=== PATIENT | male | born 1965 | race Caucasian/White ===

== ENCOUNTER 2017-01-29 19:22 | Emergency (ER) | payer MEDICARE, OTHER ==
[~2017-01-29] VITALS: Ht 165.1 cm; Wt 65.8 kg
[~2017-01-29 19:22] MED LIST: ATORVASTATIN CA20 MG PO; AUGMENTIN 875-1 EACH PO; CARBAMAZEPINE200 MG PO; DIVALPROEX SOD500 MG PO; IBUPROFEN800 MG PO; KEFLEX500 MG PO; LEVOTHYROXINE75 MCG PO; NORCO 5-325 TA1 EACH PO; PREDNISONE20 MG PO; TEGRETOL XR200 MG PO; TUSSIONEX PENN480 ML PO; ULTRAM50 MG PO
== END 2017-01-29 22:30 | disposition home or self-care (01) ==
LOC: ED 19:22
DX: M62.830 Muscle spasm of back (principal); E03.9 Hypothyroidism, unspecified; E78.00 Pure hypercholesterolemia, unspecified; G40.909 Epilepsy, unspecified, not intractable, without status epilepticus; F17.200 Nicotine dependence, unspecified, uncomplicated; Z88.0 Allergy status to penicillin; Z88.5 Allergy status to narcotic agent; Z79.899 Other long term (current) drug therapy
CPT/HCPCS: 96372; 99282; J1885

== ENCOUNTER 2017-05-16 15:39 | Emergency (ER) | payer MEDICARE, OTHER ==
[~2017-05-16] VITALS: Ht 165.1 cm; Wt 65.8 kg
[2017-05-16] MEDS ORDERED: CLEOCIN HCL300 MG PO (16:07)
[2017-05-16] MEDS ORDERED: ULTRAM50 MG PO (16:07)
[2017-05-16] MEDS ORDERED: PRILOSEC OTC20 MG PO (16:44)
[2017-05-16] MEDS ORDERED: NORCO 5-325 TA1 EACH PO (16:44)
== END 2017-05-16 17:13 | disposition home or self-care (01) ==
LOC: ED 15:39
DX: K21.0 Gastro-esophageal reflux disease with esophagitis (principal); E03.9 Hypothyroidism, unspecified; E78.00 Pure hypercholesterolemia, unspecified; G40.909 Epilepsy, unspecified, not intractable, without status epilepticus; Z88.0 Allergy status to penicillin; Z88.5 Allergy status to narcotic agent; Z79.899 Other long term (current) drug therapy
CPT/HCPCS: 99283

== ENCOUNTER 2019-03-16 23:50 | Emergency (ER) | payer MEDICARE, OTHER ==
[~2019-03-16] VITALS: Ht 165.1 cm; Wt 65.8 kg
--- OUTSIDE RECORDS SUMMARY | ~2019-03-16 | XMS | Encounter Summary ---
Demographics + + + | Address | [address] | | | [place] [address] | + + + | Home Phone | | + + + | Preferred Language | Unknown | + + + | Marital Status | | + + + | Yarsani Affiliation | Unknown | + + + | Race | Unknown | + + + | Ethnic Group | Unknown | + + + Author + + + | Author | [facility] | | | and [place] | + + + | Organization | [facility] | | | and [place] | + + + | Address | Unknown | + + + | Phone | Unavailable | + + + Support + + + + + | Name | Relationship | Address | Phone | + + + + + | Alesha Ly | ECON | [address] | | | | | [place] | | | | | [address] | | + + + + + | Arabella Zabala | ECON | Unknown | | + + + + + | No Contact | ECON | Unknown | | + + + + + Care Team Providers + +------+ + | Care Lab Rn Name | Role | Phone | + +------+ + | Ephraim Altamirano MD | PCP | | + +------+ + Reason for Visit + + + | Reason | Comments | + + + | Imaging Only | | + + + Encounter Details +--------+ + + + + | Date | Type | Department | Care Team | Description | +--------+ + + + + | 08/29/ | Telephone | [facility] | Matty Hu, | Imaging Only | | 2015 | | NEUR[address]UR[address]ERY [address] | PA-C [address] | | | | | [address] | [address] [facility] | | | | | [place], [place] | [place] [address] | | | | | [address] | [phone] | | | | | [phone] | | | +--------+ + + + + Social History + +-------+ +--------+------+ | Tobacco Use | Types | Packs/Day | Years | Date | | | | | Used | | + +-------+ +--------+------+ | Never Smoker | | | | | + +-------+ +--------+------+ + +------+---+---+ | Smokeless Tobacco: | Chew | | | | Current User | | | | + +------+---+---+ + + | Comments: Rarely uses chew | + + + + +---------+ + | Alcohol Use | Drinks/Week | oz/Week | Comments | + + +---------+ + | No | 0 Standard drinks | 0.0 | | | | or equivalent | | | + + +---------+ + + + + | Sex Assigned at | Date Recorded | | | | + + + | Not on file | | + + + + + + + | Job Start Date | Occupation | Industry | + + + + | Not on file | Not on file | Not on file | + + + + + + + + | Travel History | Travel Start | Travel End | + + + + + + | No recent travel history available. | + + documented as of this encounter Plan of Treatment Not on filedocumented as of this encounter Visit Diagnoses Not on filedocumented in this encounter"
--- OUTSIDE RECORDS SUMMARY | ~2019-03-16 | XMS | Encounter Summary ---
Demographics + + + | Address | [address] | | | [place] [address] | + + + | Home Phone | | + + + | Preferred Language | Unknown | + + + | Marital Status | | + + + | Holiness Affiliation | Unknown | + + + | Race | Unknown | + + + | Ethnic Group | Unknown | + + + Author + + + | Author | [facility] | | | and [place] | + + + | Organization | [facility] | | | and [place] | + + + | Address | Unknown | + + + | Phone | Unavailable | + + + Support + + + + + | Name | Relationship | Address | Phone | + + + + + | Adan Ly | ECON | [address] | | | | | [place] | | | | | [address] | | + + + + + | Arabella Zabala | ECON | Unknown | | + + + + + | No Contact | ECON | Unknown | | + + + + + Care Team Providers + +------+ + | Care Director Physical Therapy Name | Role | Phone | + +------+ + | Ephraim Altamirano MD | PCP | | + +------+ + Encounter Details +--------+ + + + + | Date | Type | Department | Care Team | Description | +--------+ + + + + | 08/28/ | Hospital | [facility] | Oscar Garcia, | Neck pain | | 2016 | Encounter | MED CTR XRAY [address] | DO [address] | | | | | [place] | [address], [place] | | | | | [place] [address] | [id number] | | | | | [phone] | | | +--------+ + + + [...] + + documented as of this encounter Medications at Time of Discharge + + + +---------+--------+ + | Medication | Sig | Dispensed | Refills | Start | End Date | | | | | | Date | | + + + +---------+--------+ + | atorvaSTATin | Take 20 mg by mouth | | 0 | | | | (LIPITOR) 20 mg | nightly. | | | | | | tablet | | | | | | + + + +---------+--------+ + | carBAMazepine | Take 200 mg by mouth | | 0 | | | | (TEGRETOL) 200 mg | 3 times daily. | | | | | | tablet | | | | | | + + + +---------+--------+ + | divalproex | Take 500 mg by mouth | | 0 | | | | (DEPAKOTE) 500 mg EC | 2 times daily. | | | | | | tablet | | | | | | + + + +---------+--------+ + | gabapentin | Take 300 mg by mouth | | 0 | | | | (NEURONTIN) 300 mg | Daily. | | | | | | capsule | | | | | | + + + +---------+--------+ + | levothyroxine | Take 75 mcg by mouth | | 0 | | | | (SYNTHROID, | every morning | | | | | | LEVOTHROID) 75 MCG | (before breakfast). | | | | | | tablet | | | | | | + + + +---------+--------+ + documented as of this encounter Plan of Treatment Not on filedocumented as of this encounter Procedures + +--------+ + + + | Procedure Name | Priori | Date/Time | Associated Diagnosis | Comments | | | ty | | | | + +--------+ + + + | XR CERVICAL SPINE 4 | Routin | 08/29/2015 | Neck pain | Results for this | | OR 5 VWS | e | 1:02 PM | | procedure are in the | | | | PDT | | results section. | + +--------+ + + + documented in this encounter Results XR Cervical Spine 4 or 5 Vws (08/29/2015 1:02 PM PDT) + + | Specimen | + + | | + + + + + | Narrative | Performed At | + + + | CERVICAL SPINE: 08/29/2015 1:02 PM CLINICAL HISTORY: Neck pain | [facility] | | COMPARISON: CT cervical spine 04/18/2015 FINDINGS: Upright AP, | [facility] | | lateral and lateral flexion-extension views of the cervical spine. | [facility] | | Spine is imaged to the mid body of T1. Vertebral body heights are | - IMAGING | | normal. Mild disc space narrowing at C5-C6 with anterior osteophyte | | | formation. Also mild disc space narrowing at C3-C4. Facet joints are | | | normally aligned. There is straightening of the normal cervical | | | lordosis on the neutral view. No focal loss of alignment in flexion | | | or extension. No prevertebral swelling or paraspinous soft tissue | | | abnormality. IMPRESSION - Early degenerative changes at C5-C6 and | | | to a lesser extent at C3-C4. No radiographic demonstration of | | | instability. Dictated and Signed by: Fidencio Hein MD | | | Electronically signed: 08/29/2015 3:01 PM | | + + + + + | Procedure Note | + + | Loy, Rad Results In - 08/29/2015 3:05 PM PDT CERVICAL SPINE: 08/29/2015 1:02 PM | | | | CLINICAL HISTORY: Neck pain | | | | COMPARISON: CT cervical spine 04/18/2015 | | | | FINDINGS: Upright AP, lateral and lateral flexion-extension views of the | | cervical spine. | | | | Spine is imaged to the mid body of T1. Vertebral body heights are normal. Mild | | disc space narrowing at C5-C6 with anterior osteophyte formation. Also mild disc | | space narrowing at C3-C4. Facet joints are normally aligned. | | | | There is straightening of the normal cervical lordosis on the neutral view. No | | focal loss of alignment in flexion or extension. | | | | No prevertebral swelling or paraspinous soft tissue abnormality. | | | | IMPRESSION - Early degenerative changes at C5-C6 and to a lesser extent at C3-C4. | | No radiographic demonstration of instability. | | | | Dictated and Signed by: Fidencio Hein MD | | Electronically signed: 08/29/2015 3:01 PM | + + + + + + + | Performing | Address | City/State/Zipcode | Phone Number | | Organization | | | | + + + + + | [facility] | [address] | [place] | [phone] | | [facility] | | [address] | | | - IMAGING | | | | + + + + + documented in this encounter Visit Diagnoses + + | Diagnosis | + + | Neck pain Cervicalgia | + + documented in this encounter"
--- OUTSIDE RECORDS SUMMARY | ~2019-03-16 | XMS | Encounter Summary ---
Demographics + + + | Address | [address] | | | [place] [address] | + + + | Home Phone | | + + + | Preferred Language | Unknown | + + + | Marital Status | | + + + | Judaism Affiliation | Unknown | + + + | Race | Unknown | + + + | Ethnic Group | Unknown | + + + Author + + + | Author | [facility] | | | and [place] | + + + | Organization | [facility] | | | and [...] [place] | | | | | [address] | | + + + + + | Arabella Zabala | ECON | Unknown | | + + + + + | No Contact | ECON | Unknown | | + + + + + Care Team Providers + +------+ + | Care Business Integration Analyst Name | Role | Phone | + +------+ + | Ephraim Altamirano MD | PCP | | + +------+ + Encounter Details +--------+ + + + + | Date | Type | Department | Care Team | Description | +--------+ + + + + | 09/24/ | Transcribed | [facility] | Ephraim Altamirano | Seizures (HCC) | | 2017 | Orders | MED [facility] SLEEP | MD [address] | (Primary Dx) | | | | [place] [address] | [place] | | | | | [place] | [place] [address] | | | | | [address] | [phone] | | | | | [phone] | | | +--------+ + + + [...] Not on filedocumented as of this encounter Results EEG (10/05/2016 9:02 PM PDT) + + + | Narrative | Performed At | + + + | Emanuel Yadav MD 10/05/2016 21:02 EEG | | | REPORT General Description: This was a 19 channel awake and | | | drowsy EEG recording with [employer] 10/20 electrode placements. | | | The background activity consisted of diffuse low to moderate | | | amplitude theta activity throughout the recording. Activation | | | Procedures: Hyperventilation produced no significant changes to the | | | background activity. Photic stimulation produced no significant | | | changes to the background activity. Sleep Patterns: No sleep was | | | noted. INTERPRETATION: This EEG is abnormal. Diffuse slowing is | | | suggestive of a diffuse encephalopathy of metabolic, degenerative | | | or vascular origin. No epileptiform discharges were seen. Thank | | | you for the courtesy of this referral. | | + + + documented in this encounter Visit Diagnoses + + | Diagnosis | + + | Seizures (HCC) - Primary Other convulsions | + + documented in this encounter"
--- OUTSIDE RECORDS SUMMARY | ~2019-03-16 | XMS | Encounter Summary ---
Demographics + + + | Address | [address] | | | [place] [address] | + + + | Home Phone | | + + + | Preferred Language | Unknown | + + + | Marital Status | | + + + | Anabaptism Affiliation | Unknown | + + + | Race | Unknown | + + + | Ethnic Group | Unknown | + + + Author + + + | Author | [facility] | | | and [place] | + + + | Organization | [facility] | | | [...] [place] | | | | | [address] | | + + + + + | Arabella Zabala | ECON | Unknown | | + + + + + | No Contact | ECON | Unknown | | + + + + + Care Team Providers + +------+ + | Care Apartment Maintenance Worker Name | Role | Phone | + [...] | (Primary Dx) | | | | [facility] [address] | [place] | | | | | [place] | [place] [address] | | | | | [address] | [phone] | | | | | [phone] | | | +--------+ + + + [...]
--- OUTSIDE RECORDS SUMMARY | ~2019-03-16 | XMS | Encounter Summary ---
Demographics + + + | Address | [address] | | | [place] [address] | + + + | Home Phone | | + + + | Preferred Language | Unknown | + + + | Marital Status | | + + + | Jehovah'S Witness Affiliation | Unknown | + + + | Race | Unknown | + + + | Ethnic Group | Unknown | + + + Author + + + | Author | [facility] | | | and [place] | + + + | Organization | [facility] | | | [...] [address] | | | | | [place] | | | | | [id number] | | + + + + + | Arabella Zabala | ECON | Unknown | | + + + + + | No Contact | ECON | Unknown | | + + + + + Care Team Providers + +------+ + | Care Stuffer Name | Role | Phone | + +------+ + | Ephraim Altamirano MD | PCP | | + +------+ + Reason for Referral Evaluate & Treat (Routine) +--------+ + + + + + | Status | Reason | Specialty | Diagnoses / | Referred By | Referred To | | | | | Procedures | Contact | Contact | +--------+ + + + + + | Closed | Specialty | Physical | Diagnoses | [facility], | | | | Services | Therapy | Bilateral | Teodoro Poon MD | | | | Required | | low back | [address] | | | | | | pain without | [address] | | | | | | sciatica | [place], | | | | | | Lumbar | [place] [address] | | | | | | strain, | Phone: | | | | | | initial | [phone] | | | | | | encounter | Fax: | | | | | | | [phone] | | +--------+ + + + + + Reason for Visit + + + | Reason | Comments | + + + | Procedure | | + + + Evaluate & Treat (Routine) +--------+ + + + + + | Status | Reason | Specialty | Diagnoses / | Referred By | Referred To | | | | | Procedures | Contact | Contact | +--------+ + + + + + | Closed | Specialty | Physical | Diagnoses | Huan, | Teodoro [facility]ley | | | Services | Medicine and | Cervicalgia | Teodoro Poon MD | Latasha Poon MD [address] | | | Required | Rehabilitatio | Left upper | [address] | | | | n | extremity | [address] | [place], | | | | | numbness | [place], | [place] [address] | | | | | Weakness of | [place] [address] | Phone: | | | | | left upper | Phone: | [phone] | | | | | extremity | [phone] | Fax: | | | | | Osteoarthrit | Fax: | [phone] | | | | | is of spine | [phone] | | | | | | with | | | | | | | radiculopath | | | | | | | y, cervical | | | | | | | region | | | | | | | Procedures | | | | | | | DOS 07/25/15 | | | +--------+ + + + + + Encounter Details +--------+ + + + + | Date | Type | Department | Care Team | Description | +--------+ + + + + | 07/24/ | Procedure | [facility] | Teodoro [facility] A, | Cervicalgia (Primary | | 2016 | visit | PHYSIATRY [address] | MD [address] | Dx); Left upper | | | | [address] [place], | [place], [place] | extremity numbness; | | | | [place] [address] | [address] | Weakness of left | | | | [phone] | | upper extremity; | | | | | | Bilateral low back | | | | | | pain without | | | | | | sciatica; Lumbar | | | | | | strain, initial | | | | | | encounter | +--------+ + + + + Social History + +-------+ +--------+------+ | Tobacco Use | Types | Packs/Day | Years | Date | | | | | Used | | + +-------+ +--------+------+ | Never Smoker | | | | | + +-------+ +--------+------+ + +------+---+---+ | Smokeless Tobacco: | Chew | | | | Former User | | | | + +------+---+---+ + + +---------+ + | Alcohol Use [...] + + documented as of this encounter Last Filed Vital Signs + + + + + | Vital Sign | Reading | Time Taken | Comments | + + + + + | Blood Pressure | 130/85 | 07/25/2015 10:21 AM | | | | | PDT | | + + + + + | Pulse | 85 | 07/25/2015 10:21 AM | | | | | PDT | | + + + + + | Temperature | - | - | | + + + + + | Respiratory Rate | 16 | 07/25/2015 10:21 AM | | | | | PDT | | + + + + + | Oxygen Saturation | - | - | | + + + + + | Inhaled Oxygen | - | - | | | Concentration | | | | + + + + + | Weight | - | - | | + + + + + | Height | 165.1 cm (5' 5") | 07/25/2015 10:21 AM | | | | | PDT | | + + + + + | Body Mass Index | - | - | | + + + + + documented in this encounter Patient Instructions Patient Instructions Teodoro Pressley MD - 07/25/2015 10:54 AM PDTParticipate in physical t herapy for the neck and the back. Continue Gabapentin prescribed by your doctor. Return to the clinic in 8 weeks to review your symptoms. If neck symptoms and back symptoms persist we will request additional imaging such as MRIs. documented in this encounter Progress Notes Teodoro Pressley MD - 07/25/2015 11:22 AM PDTFormatting of this note might be different fro m the original. [facility] Physical Medicine & Rehabilitation [address] [place] [address], [address] [place] [address] Test Date: 07/25/2015 Patient Name: Mata Tipton : 1965 Physician: Teodoro Press[facility] MD (Jr.) MR #: [id number] Sex: Male Referring Physician: Ephraim Altamirano MD HISTORY: Mr. Tipton reports that he has neck pain, left upper extremity pain, numbness and weakness . He reports that his left upper extremity symptoms have been dramatically improved since s tarting prescribed medication gabapentin. Gabapentin was prescribed by his PCP. He indicat es that he has been having less numbness and tingling in the left upper extremity since usin g gabapentin. He indicates that he has been having neck discomfort for 1 year. He indicates his neck joel n is a 5/10 on a numerical pain scale. He reports that his neck pain is getting worse. Nec k pain is constant in timing. Neck pain is dull. He experiences shooting pain into the lef t axilla, down the left ulnar forearm and into the entire left hand. He indicates that he h as numbness and tingling intermittently in left upper extremity. He indicates that it invol ves all fingers of the left hand. He denies weakness in the left upper extremity. He indic ates that symptoms in left upper extremity start for no specific reason. He reports that sy mptoms started without specific injury. He indicates he has left hand numbness that occurs at night and wakes him from sleep. He indicates that his left upper extremity symptoms star cheryl around 3 months ago. His neck pain has been going on for 1 year. He indicates that sym ptoms occur daily with numbness in left hand, usually when he is at work. He indicates that the episodes of numbness in the left hand last for 5 minutes and then go away. He finds hi mself shaking his hand to get the numbness to go away. He denies dropping objects with the left hand. He reports that there have been some occasions where he wakes up at night and fi nds that his left hand is numb. He denies pain, numbness, tingling or weakness in the right upper extremity. He indicates that his symptoms seem to reduce if he slouches and keeps wv s neck in a flexed position. He indicates that his symptoms seem to be worse if he sits ere ct with his neck in a more straight up position. He continues to have back pain. He reports that he has had back pain for almost 2 months. He indicates that he has had back pain on and off for years. Current back pain is 3 out of 10 on a numerical pain scale. He is requesting a pain pill or something for wv s back. Prior episodes of back pain of back pain lasts for a few weeks and then go away. H e indicates the back pain is bilateral. He indicates that right is equal to left. He denie s any pain from the back, traveling into the legs. He denies numbness, tingling or weakness in either lower extremity. He denies incontinence of bowel or bladder. He denies saddle a nesthesia. He indicates that it feels like the muscles in the back are tight. PHYSICAL EXAM: Exam demonstrates intact cranial nerves. His memory is intact. His speech is normal. His sensation is intact to light touch and pinprick in both upper extremities as well as both l ower extremities. His reflexes are normal over biceps and triceps of both upper extremities , normal over patellar and Achilles of both lower extremities. No clonus to either ankle. Strength is 4/5 hand sole stitcher hand on the left compared to 5/5 on the right. There is 4/5 wrist dors iflexion strength on the left compared to 5/5 on the right. There is 5/5 biceps, triceps, f frieda abduction strength in both upper extremities. There is 5/5 hip flexion, knee flexion, knee extension, ankle dorsiflexion, ankle plantar flexion strength in both lower extremitie s. Gait is normal. Nerve Conduction Studies Anti Sensory Summary Table Site NR Peak (ms) Norm Peak (ms) O-P Amp (V) Norm O-P Amp Site1 Site2 Delta-0 (ms) Dist (cm) Inocencio (m/s) Norm Inocencio (m/s) Left Median Anti Sensory (2nd Digit) 23.3C Wrist 3.1 <3.6 50.7 >10 Wrist 2nd Digit 2.3 14.0 61 >39 Elbow 7.0 22.0 Elbow Wrist 3.9 21.5 55 >48 Left Radial Anti Sensory (Base 1st Digit) 23.7C Wrist 2.3 <2.7 16.4 Wrist Base 1st Digit 1.9 10.0 53 Left Ulnar Anti Sensory (5th Digit) 23.4C Wrist 3.0 <3.7 53.6 >15.0 Wrist 5th Digit 2.5 14.0 56 >38 B Elbow 6.4 28.6 B Elbow Wrist 3.0 18.0 60 >47 A Elbow 7.8 27.5 A Elbow B Elbow 1.4 10.0 71 Motor Summary Table Site NR Onset (ms) Norm Onset (ms) O-P Amp (mV) Norm O-P Amp Site1 Site2 Delta-0 (ms) Dist (cm) Inocencio (m/s) Norm Inocencio (m/s) Left Median Motor (Abd Poll Brev) 23.6C Wrist 3.8 <4.2 5.0 >5 Elbow Wrist 4.2 22.5 54 >50 Elbow 8.0 4.7 Axilla Elbow 1.5 10.0 67 Axilla 9.5 5.5 Left Ulnar Motor (Abd Dig Minimi) 23.6C Wrist 3.0 <4.2 10.3 >3 B Elbow Wrist 3.2 18.0 56 >53 B Elbow 6.2 10.0 A Elbow B Elbow 1.5 10.0 67 >53 A Elbow 7.7 9.8 Comparison Summary Table Site NR Peak (ms) Norm Peak (ms) P-T Amp (V) Site1 Site2 Delta-P (ms) Norm Delta (ms) Left Median/Radial Dig I Comparison (Digit 1 - 10cm) 23.6C Median 2.3 <2.9 89.7 Median Radial 0.1 <0.4 Radial 2.4 <2.8 17.1 Left Median/Ulnar Dig IV Comparison (Digit 4 - 14cm) 23.3C Median Wr 3.2 <3.3 33.5 Median Wr Ulnar Wr 0.3 <0.4 Ulnar Wr 2.9 <3.3 42.1 Left Median/Ulnar Palm Comparison (Wrist - 8cm) 23.7C Median Palm 2.0 <2.5 123.4 Median Palm Ulnar Palm 0.1 <0.3 Ulnar Palm 1.9 <2.5 45.4 F Wave Studies NR F-Lat (ms) Lat Norm (ms) L-R F-Lat (ms) L-R Lat Norm Left Median (Mrkrs) (Abd Poll Brev) 23.6C 27.75 <33 <2.2 Left Ulnar (Mrkrs) (Abd Dig Min) 23.6C 25.50 <36 <2.5 EMG Side Muscle Nerve Root Ins Act Fibs Psw Amp Dur Poly Recrt Int Pat Comment Left Deltoid Axillary C5-6 Incr Nml 1+ Nml Nml Poly Nml Nml Left Biceps Musculocut C5-6 Nml Nml Nml Nml Nml Nml Nml Nml Left Triceps Radial C6-7-8 Nml Nml Nml Nml Nml Nml Nml Nml Left PronatorTeres Median C6-7 Nml Nml Nml Nml Nml Nml Nml Nml Left 1stDorInt Ulnar C8-T1 Nml Nml Nml Nml Nml Nml Nml Nml Left Abd Poll Brev Median C8-T1 Nml Nml Nml Nml Nml Nml Nml Nml NCV FINDINGS: All nerve conduction studies (as indicated in the following tables) were with in normal limits. All F Wave latencies were within normal limits. EMG FINDINGS: Needle evaluation of the Left deltoid muscle showed increased insertional act ivity, slightly increased spontaneous activity, and polyphasic potentials. All remaining mu scles (as indicated in the following table) showed no evidence of electrical instability. IMPRESSION: This is an abnormal study. Nerve conduction study of the left upper extremity was normal. There was no evidence of me cristiana neuropathy (e.g. carpal tunnel syndrome) in the left upper extremity. This study can e xclude the presence of carpal tunnel syndrome at this time. There was no evidence of ulnar neuropathy in the left upper extremity. There was no evidence of radial neuropathy in the l eft upper extremity at this time. Needle EMG of the left upper extremity was abnormal. Needle EMG of the left upper extremit y does not meet the diagnostic criteria for cervical radiculopathy. However, the abnormalit ies seen, paired with Mr. Tipton s clinical presentation is most consistent with left C6 radiculopathy. This study cannot diagnose nor can it rule out the presence of cervical spin al stenosis. DISCUSSION: Mr. Tipton demonstrated fair tolerance to nerve conduction study and EMG. He was able to complete the entire study. As noted above, this study is able to rule out the presence of carpal tunnel syndrome. The study does not meet the absolute diagnostic criteria for cervical radiculopathy, but the ab normalities seen in combination with Mr. Tipton s clinical presentation is most consisten t with left C6 radiculopathy. This study cannot diagnose nor rule out cervical spinal steno sis. Mr. Tipton has been asked to participate in physical therapy for both his neck and his jesus k. He already has cervical CT with evidence of cervical spondylosis. He should continue ga bapentin. He will return to the clinic in 8 weeks to review his response to physical therap y. If he continues to have neck symptoms cervical MRI will be requested. Future treatment options for the neck include interventional injection, additional medication, and surgical c onsult. Mr. Tipton continues to have non-radicular back pain. He will have physical therapy for h is back. If back pain persists in the future we will request lumbar MRI. Approximately 15 minutes was spent face to face today with Mr. Tipton, beyond the completi on of the nerve conduction study and EMG above, over half of which was spent formulating and discussing his medical treatment plan. Thank you for allowing me to be involved in the care of your patient. If you have any quest ions or comments, please do not hesitate to call. Teodoro Pressley MD (Jr.) Physical Medicine and Rehabilitation Cc: Ephraim Altamirano MD documented in this en counter Plan of Treatment + + +--------+ + + | Name | Type | Priori | Associated Diagnoses | Order Schedule | | | | ty | | | + + +--------+ + + | External Ambulatory | Outpatient | Routin | Bilateral low back | Ordered: 07/25/2015 | | referral to Physical | Referral | e | pain without | | | Therapy | | | sciatica Lumbar | | | | | | strain, initial | | | | | | encounter | | + + +--------+ + + documented as of this encounter Visit Diagnoses + + | Diagnosis | + + | Cervicalgia - Primary | + + | Left upper extremity numbness Disturbance of skin sensation | + + | Weakness of left upper extremity Other musculoskeletal symptoms referable to limbs | + + | Bilateral low back pain without sciatica | + + | Lumbar strain, initial encounter | + + documented in this encounter
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
--- OUTSIDE RECORDS SUMMARY | ~2019-03-16 | XMS | Encounter Summary ---
Demographics + + + | Address | [address] | | | [place] [address] | + + + | Home Phone | | + + + | Preferred Language | Unknown | + + + | Marital Status | | + + + | Gnosticism Affiliation | Unknown | + + + | Race | Unknown | + + + | Ethnic Group | Unknown | + + + Author + + + | Author | [facility] | | | and [place] | + + + | Organization | [facility] | | | [...] [place] | | | | | [address] | | + + + + + | Arabella Zabala | ECON | Unknown | | + + + + + | No Contact | ECON | Unknown | | + + + + + Care Team Providers + +------+ + | Care Trigonometry Tutor Name | Role | Phone | + +------+ + | Cullen Altamirano MD | PCP | | + [...] Physical | Diagnoses | Huan, | Teodoro John | | | Services | Medicine and | Cervicalgia | Teodoro Poon MD | Latasha Poon MD [address] | | | Required | Rehabilitatio | Left upper | [address] | | | | n | extremity | [address] | [place], | | | | | numbness | [place], | [place] [address] | | | | | Weakness of | [place] [address] | Phone: | | | | | left upper | Phone: | [phone] | | | | | extremity | [phone] | Fax: | | | | | Osteoarthrit | Fax: | [phone] | | | | | is of spine | [phone] | | | | | | with | | | | | | | radiculopath | | | | | | | y, cervical | | | | | | | region | | | | | | | Procedures | | | | | | | DOS 07/25/15 | | | +--------+ + + + + + Evaluate & Treat (Routine) +--------+ + + + + + | Status | Reason | Specialty | Diagnoses / | Referred By | Referred To | | | | | Procedures | Contact | Contact | +--------+ + + + + + | Closed | Specialty | Physical | Diagnoses | Huan, | | | | Services | Therapy | Cervicalgia | Teodoro Poon MD | | | | Required | | Left upper | [address] | | | | | | extremity | [address] | | | | | | numbness | [place], | | | | | | Weakness of | [place] [address] | | | | | | left upper | Phone: | | | | | | extremity | [phone] | | | | | | Osteoarthrit | Fax: | | | | | | is of spine | [phone] | | | | | | with | | | | | | | radiculopath | | | | | | | y, cervical | | | | | | | region | | | +--------+ + + + + + Reason for Visit + + + | Reason | Comments | + + + | Neck Pain | radiates to LUE | + + + Evaluate & Treat (Routine) +--------+--------+ + + + + | Status | Reason | Specialty | Diagnoses / | Referred By | Referred To | | | | | Procedures | Contact | Contact | +--------+--------+ + + + + | Closed | | Physical | Diagnoses | Evelia, | Teodoro John | | | | Medicine and | | Cullen Bright, | Latasha Poon MD [address] | | | | Rehabilitatio | Radiculopath | [address] | | | | n | y, site | [address] | [place], | | | | | unspecified | [place], | [place] [address] | | | | | | [place] [address] | Phone: | | | | | | Phone: | [phone] | | | | | | [phone] | Fax: | | | | | | Fax: | [phone] | | | | | | [phone] | | +--------+--------+ + + + + Encounter Details +--------+---------+ + + + | Date | Type | Department | Care Team | Description | +--------+---------+ + + + | 07/09/ | Office | [facility] | Teodoro John, | Cervicalgia (Primary | | 2016 | Visit | PHYSIATRY [address] | [address] | Dx); Left upper | | | | [address] [place], | [place], [place] | extremity numbness; | | | | [place] [address] | [address] | Weakness of left | | | | [phone] | | upper extremity; | | | | | | Osteoarthritis of | | | | | | spine with | | | | | | radiculopathy, | | | | | | cervical region; | | | | | | Bilateral low back | | | | | | pain without | | | | | | sciatica; Lumbar | | | | | | strain, initial | | | | | | encounter | +--------+---------+ + + + Social History [...] + + + | Blood Pressure | 132/80 | 07/10/2015 2:17 PM | | | | | PDT | | + + + + + | Pulse | 80 | 07/10/2015 2:17 PM | | | | | PDT | | + + + + + | Temperature | - | - | | + + + + + | Respiratory Rate | 16 | 07/10/2015 2:17 PM | | | | | PDT | | + + + + + | Oxygen Saturation | - | - | | + + + + + | Inhaled Oxygen | - | - | | | Concentration | | | | + + + + + | Weight | 65.8 kg (145 lb) | 07/10/2015 2:17 PM | | | | | PDT | | + + + + + | Height | 165.1 cm (5' 5") | 07/10/2015 2:17 PM | | | | | PDT | | + + + + + | Body Mass Index | 24.13 | 07/10/2015 2:17 PM | | | | | PDT | | + + + + + documented in this encounter Patient Instructions Patient Instructions John, Teodoro E A, MD - 07/10/2015 3:04 PM PDTContinue gabapentin as pr escribed by Cullen Altamirano MD. Physical therapy has been prescribed. Please participate in physical therapy. If you have not be contacted for an appointment with physical therapy within one week, please contact [facility]. Once you have completed physical therapy please continue the home exercise progr am as outline by physical therapy, indefinitely. Please attend your scheduled nerve conduction study and EMG appointment. Nerve conduction studies and EMG require a great deal of time to complete. If you will be unable to make your appointment please contact the clinic at least one full business day laz or to your appointment . Missed appoints without cancellation will only be re scheduled once. Children under the age of 13 are not permitted in the room during the nerve study. If acco mpanied by children under the age of 13, they will need an adult to supervise them, while th ey wait in the lobby. Prior to your appointment wash the skin with soap and water. This is to remove any of the natural oils on the skin which may interfere with the completion of the study. Please do not wear any lotion prior to the study as lotion may also interfere with the comp letion of the study. When attending your study please bring appropriate attire. If you are having a study of th e upper extremities please bring a short sleeve shirt to wear during the study. If you are having a study of the lower extremities please bring shorts to wear during the study. At the time of your study, please remind the physician if you are taking any blood thinning medications such as Coumadin, or heparin. At the time of your study, please remind the physician if you have an implanted electronic device such as a pacemaker. documented in this encounter Progress Notes Teodoro John MD - 07/10/2015 3:22 PM PDT [facility] PHYSIATRY [address] [facility] [address] OFFICE NOTE TEODORO JOHN JR, MD Patient: MATA SIEGEL Admitting: MR #: [id number] LOC: PT TYPE: Adm Date: 07/10/2015 : 1965 PHYSICAL MEDICINE REHABILITATION CONSULTATION DATE OF : 1965 CONSULT REQUESTED BY: Cullen Altamirano MD DATE OF SERVICE: 07/10/2015 PATIENT IDENTIFICATION: A 49-year-old male referred to the clinic for neck pain and left upper extremity numbness. He also has complaint of low back pain. HISTORY OF PRESENT ILLNESS: The patient indicates that his left upper extremity symptoms have been dramatically improved since starting prescribed medication gabapentin. Gabapenti n was prescribed by his PCP. He indicates that he has been taking gabapentin 1 tablet night ly. He indicates that he cannot tolerate taking the medication during his work hours jordy use it is too sedating, but taking it before he goes to bed, seems to be very helpful. He indicates that he has been having less numbness and tingling in the left upper extremity si nce using gabapentin. He indicates that he has been having neck discomfort for 1 year. He indicates his neck pa in is a 2 or 3/10 on a numerical pain scale. Neck pain is constant in timing. Neck pain i s dull. He experiences shooting pain into the left axilla, down the left ulnar forearm and into the entire left hand. He indicates that he has numbness and tingling intermittently in left upper extremity. He indicates that it involves all fingers of the left hand. He denies weakness in the left upper extremity. He indicates that symptoms in left upper extr emity start for no specific reason. He reports that symptoms started without specific inj ury. He indicates he has left hand numbness that occurs at night and wakes him from sleep. He indicates that his left upper extremity symptoms started around 2 months ago. His nec k pain has been going on for 1 year. He indicates that symptoms occur daily with numbness in left hand, usually when he is at work. He indicates that the episodes of numbness in t he left hand last for 5 minutes and then go away. He finds himself shaking his hand to get the numbness to go away. He denies dropping objects with the left hand. He reports that there have been some occasions where he wakes up at night and finds that his left hand is numb. He denies pain, numbness, tingling or weakness in the right upper extremity. He ind icates that his symptoms seem to reduce if he slouches and keeps his neck in a flexed posit ion. He indicates that his symptoms seem to be worse if he sits erect with his neck in a m ore straight up position. He had CT of neck. Please see database below. He also complains of back pain. He indicates that he has had back pain on and off for yea rs. He indicates that his most recent episode of back pain started 2 weeks ago. He is not sure why. He indicates that currently he is not having any back pain. Back pain is a 0/1 0 on a numerical pain scale. Prior to this last 2 weeks of back pain, his previous episod e of back pain was 1 year ago. He reports that he has on average 1 episode of back pain pe r year for more than 10 years. Most episodes of back pain lasts for a few weeks and then g o away. He indicates the back pain is bilateral. He indicates that right is equal to lef t. He denies any pain from the back, traveling into the legs. He denies numbness, tinglin g or weakness in either lower extremity. He denies incontinence of bowel or bladder. He d enies saddle anesthesia. He indicates that it feels like the muscles in the back are tight. ALLERGIES: PENICILLIN. CURRENT MEDICATIONS: Lipitor 20 mg nightly. Tegretol 200 mg 3 times per day. Depakote 500 mg 2 times daily. Gabapentin 300 mg daily. Levothyroxine 75 mcg every morning. REVIEW OF SYSTEMS: The patient denies nausea, vomiting, diarrhea, constipation, fever, ch ills, shortness of breath, or chest pain, denies skin breakdown or rash. All other review of systems negative. PAST MEDICAL HISTORY: Mr. Siegel at age 3 was run over on his right side by a tractor [employer]. He had head injury and potentially a jaw injury. He said to take seizure medications since that injury. He denies diabetes. He denies asthma. He has history of heart murmur, hyperlipidemia, and hypertension. He has history of thyroid disease. He has history of s eizures and history of head injury. PAST SURGICAL HISTORY: He had trigger finger release. He has had toenail excision for in grown toenail. FAMILY MEDICAL HISTORY: He reports that father has history of heart disease. Father had recent heart bypass. Mother is in the clinic with him. Mother reports history of osteopen ic, neck and back problems, history of hypertension and high cholesterol. He a sister with history of diabetes and another sister with history of arthritis. Maternal grandfather w ith history of cancer and heart disease. Maternal grandmother with history of heart diseas e. He reports that stroke, alcohol abuse, blood clots, fibromyalgia and rheumatoid arthrit is also run in the family. SOCIAL MEDICAL HISTORY: He works in the [employer]. He works mostly at night , stocking shelves. He is . He does not smoke. He does use chewing tobacco. He i ndicates that he had quit using chewing tobacco for more than a year, but recently restarte d. He denies consumption of alcohol. He denies use of illicit drugs. PHYSICAL EXAMINATION: VITAL SIGNS: Heart rate 80, respiratory rate 16, blood pressure 132/80, weight 145 pounds , height 5 feet 5 inches. GENERAL: No acute distress. Alert to person, place, time and situation. HEENT: Extraocular muscles intact. Sclerae are clear. NECK: Limited range of motion. Spurling's test to the left, positive. Spurling's test to the right, negative. Axial loading test negative. HEART: Regular rate and rhythm, no mur murs that I could auscultate; however, he does report history of heart murmur. LUNGS: Clear to auscultation, no wheezing, no crackles. ABDOMEN: Nontender, positive for bowel sounds. BACK: Symmetric, mild tenderness to palpation over lumbar paraspinal muscles. Seated str aight leg raise negative. Steve's test negative. Tone is slightly increased over lumbar paraspinal muscles. EXTREMITIES: Reveals no clubbing, cyanosis or edema in all 4 extremit ies. NEUROLOGIC: Exam demonstrates intact cranial nerves. Memory intact. Speech normal. Sens ation intact to light touch and pinprick in both upper extremities as well as both lower ex tremities. Reflexes normal over biceps and triceps of both upper extremities, normal over patellar and Achilles of both lower extremities. No clonus to either ankle. Strength is 4 /5 hand asphalt layer on the left compared to 5/5 on the right. There is 4/5 wrist dorsiflexion stre ngth on the left compared to 5/5 on the right. There is 5/5 biceps, triceps, finger abduct ion strength in both upper extremities. There is 5/5 hip flexion, knee flexion, knee exte nsion, ankle dorsiflexion, ankle plantar flexion strength in both lower extremities. Gait is normal. DATABASE: Cervical CT 04/2015, imaging personally reviewed by me demonstrates C5-6 disc o steophyte complex with evidence of cervical spondylosis. Since this is a CT, I cannot full y determine degree of neural foraminal narrowing or central canal stenosis, but there may b e some on both at this level. Other levels appear relatively unremarkable. Cervical MRI is not available for review. ASSESSMENT: 1. Cervicalgia, ICD-10 M54.2. 2. Left upper extremity numbness, ICD-10 R20.0. 3. Left upper extremity weakness, ICD-10 M62.81. 4. Cervical spondylosis at C5-[address], ICD-10 M47.22. 5. Bilateral low b ack pain, without sciatica, ICD-10 M54.5. 6. Lumbar strain, ICD-10 S39.0128. PLAN: I discussed with the patient has intermittent low back pain that lasts for a couple weeks and occurs once every year for the last few decades is likely lumbar strain. We dis cussed that especially since there is no associated numbness, weakness or radicular symptom s that there does not appear to be any significant consideration for neurologic involvemen t. He was encouraged to continue strengthening the back using safe lifting techniques. We discussed that if symptoms persist, we could prescribe him physical therapy for his back. We discussed that he could try anti-inflammatory medication, which is over the counter. In regards to his neck, it is possible that he has cervical radiculopathy, resulting in sy mptoms, left upper extremity. Tinel's test is positive over the left wrist at the median n erve. He has numbness in the entire left hand. Numbness occurs with use of the hand. He tries to shake the hand, which helps him out. He reports numbness that occurs at night. I am largely suspicious that he may have carpal tunnel syndrome. Given the cervical changes on cervical CT, he may also have cervical radiculopathy. He will return to clinic for ner ve conduction study and EMG of left upper extremity to evaluate for C6 radiculopathy versu s carpal tunnel syndrome versus both. I have prescribed in physical therapy for his neck with goals of improving cervical alignm ent and improving neural foraminal openings. He may continue using gabapentin in the meanti me. If symptoms persist in the future, may consider cervical MRI. May consider cervical epidural steroid injection. If nerve conduction study demonstrates carpal tunnel syndrome, we also will discuss treatment options for carpal tunnel syndrome. Today, he is advised to quit using chewing tobacco. We discussed the potential risks of c hewing tobacco, including oral cancer, and . Thank you for allowing me to be involved in the care of the patient. If you have any ques tions regarding the care of Mr. Siegel, please do not hesitate to call. In summary, he will return to clinic for nerve study of the left upper extremity. He will participate in physical therapy for his neck. TEODORO JOHN JR, MD Dictated by TEODORO JOHN JR, MD 07/10/2015 15:22:39 Transcribed on 07/11/2015 13:07:04 by jessica job# [id number] Confirmation #: [id number] cc: CULLEN ALTAMIRANO MD Teodoro Cervantes MD - 07/10/2015 3:06 PM PDTThis office note has been dictated. Job ID# [id number] signed by Teodoro John MD at 07/10/2015 3:22 PM PDTdocumented in this encounter Plan of Treatment + + +--------+ + + | Name | Type | Priori | Associated Diagnoses | Order Schedule | | | | ty | | | + + +--------+ + + | External Ambulatory | Outpatient | Routin | Cervicalgia Left | Ordered: 07/10/2015 | | referral to Physical | Referral | e | upper extremity | | | Therapy | | | numbness Weakness | | | | | | of left upper | | | | | | extremity | | | | | | Osteoarthritis of | | | | | | spine with | | | | | | radiculopathy, | | | | | | cervical region | | + + +--------+ + + | Ambulatory referral | Outpatient | Routin | Cervicalgia Left | Ordered: 07/10/2015 | | to Physical Medicine | Referral | e | upper extremity | | | Rehab | | | numbness Weakness | | | | | | of left upper | | | | | | extremity | | | | | | Osteoarthritis of | | | | | | spine with | | | | | | radiculopathy, | | | | | | cervical region | | + + +--------+ + + documented as of this encounter Visit Diagnoses + + | Diagnosis | + + | Cervicalgia - Primary | + + | Left upper extremity numbness Disturbance of skin sensation | + + | Weakness of left upper extremity Other musculoskeletal symptoms referable to limbs | + + | Osteoarthritis of spine with radiculopathy, cervical region | + + | Bilateral low back pain without sciatica | + + | Lumbar strain, initial encounter | + + documented in this encounter
--- OUTSIDE RECORDS SUMMARY | ~2019-03-16 | XMS | Encounter Summary ---
Demographics + + + | Address | [address] | | | [place] [address] | + + + | Home Phone | | + + + | Preferred Language | Unknown | + + + | Marital Status | | + + + | Jewish Affiliation | Unknown | + + + | Race | Unknown | + + + | Ethnic Group | Unknown | + + + Author + + + | Author | [facility] | | | and [place] | + + + | Organization | [facility] | | [...] [place] | | | | | [address] | | + + + + + | Arabella Zabala | ECON | Unknown | | + + + + + | No Contact | ECON | Unknown | | + + + + + Care Team Providers + +------+ + | Care Ultrasonic Welding Machine Operator Name | Role | Phone | + [...] Left upper | [address] | | | | n | extremity | [address] | [place], | | | | | numbness | [place], | [place] [address] | | | | | Weakness of | [place] [address] | Phone: | | | | | left upper | Phone: | [phone] | | | | | extremity | [phone] | Fax: | | | | | Osteoarthrit | Fax: | [phone] | | | | | is of spine | [phone] | | | | | | with [...] Services | Therapy | Cervicalgia | Teodoro Pono MD | | | | Required | | Left upper | [address] | | | | | | extremity | [address] | | | | | | numbness | [place], | | | | | | Weakness of | [place] [address] | | | | | | left upper | Phone: | | | | | | extremity | [phone] | | | | | | Osteoarthrit | Fax: | | | | | | is of spine | [phone] | | | | | | with [...] | Radiculopath | [address] | [address] | | | | n | y, site | [address] | [place], | | | | | unspecified | [place], | [place] [address] | | | | | | [place] [address] | Phone: | | | | | | Phone: | [phone] | | | | | | [phone] | Fax: | | | | | | Fax: | [phone] | | | | | | [phone] | | +--------+--------+ + + + + Encounter Details +--------+---------+ + + + | Date | Type | Department | Care Team | Description | +--------+---------+ + + + | 07/09/ | Office | [facility] | Teodoro John, | Cervicalgia (Primary | | 2016 | Visit | PHYSIATRY [address] | [address] | Dx); Left upper | | | | [place], | [place], [place] | extremity numbness; | | | | [place] [address] | [address] | Weakness of left | | | | [phone] | | upper extremity; | | | [...] physical therapy within one week, please contact [facility]. Once you have completed physical therapy [...] MD - 07/10/2015 3:22 PM PDT [facility] PH[facility]SIATRY [address] [address] OFFICE NOTE TEODORO JOHN JR, MD Patient: MATA SIEGEL Admitting: MR #: [id number] LOC: PT TYPE: Adm Date: 07/10/2015 : [...] on his right side by a tractor [employer]. 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 Job ID# [id number] signed by Teodoro John MD at 07/10/2015 [...]
--- OUTSIDE RECORDS SUMMARY | ~2019-03-16 | XMS | Encounter Summary ---
Demographics + + + | Address | [address] | | | [place] [address] | + + + | Home Phone | | + + + | Preferred Language | Unknown | + + + | Marital Status | | + + + | Christian Affiliation | Unknown | + + + | Race | Unknown | + + + | Ethnic Group | Unknown | + + + Author + + + | Author | [facility] | | | and [place] | + + + | Organization | [facility] | | | [...] [place] | | | | | [address] | | + + + + + | Arabella Zabala | ECON | Unknown | | + + + + + | No Contact | ECON | Unknown | | + + + + + Care Team Providers + +------+ + | Care Stitch Bonding Machine Tender Helper Name | Role | Phone | + +------+ + | Ephraim Altamirano MD | PCP | | + +------+ + Encounter Details +--------+ + + + + | Date | Type | Department | Care Team | Description | +--------+ + + + + | 08/28/ | Hospital | [facility] | Oscar Garcia, | Neck pain | | 2016 | Encounter | MED CTR XRAY [address] | DO [address] | | | | | [place] | [address] [place], [place] | | | | | [place] [address] | [id number] | | | | | [phone] | | | +--------+ + + + [...] ST. | [address] | [place] | [phone] | | [facility] | | [address] | | | - IMAGING | | | | + + + + + documented in this encounter Visit Diagnoses + + | Diagnosis | + + | Neck pain Cervicalgia | + + documented in this encounter"
--- OUTSIDE RECORDS SUMMARY | ~2019-03-16 | XMS | Encounter Summary ---
Demographics + + + | Address | [address] | | | [place] [address] | + + + | Home Phone | | + + + | Preferred Language | Unknown | + + + | Marital Status | | + + + | Orthodoxy Affiliation | Unknown | + + + | Race | Unknown | + + + | Ethnic Group | Unknown | + + + Author + + + | Author | [facility] | | | and [place] | + + + | Organization | [facility] | | | and [...] [place] | | | | | [address] | | + + + + + | Arabella Zabala | ECON | Unknown | | + + + + + | No Contact | ECON | Unknown | | + + + + + Care Team Providers + +------+ + | Care Bird Keeper Name | Role | Phone | + +------+ + | Ephraim Altamirano MD | PCP | | + +------+ + Encounter Details +--------+ + + + + | Date | Type | Department | Care Team | Description | +--------+ + + + + | 06/21/ | Abstract | [facility] [place] | Teodoro Pressley, | | | 2015 | | PHYSIATRY [address] | MD [address] | | | | | [place], | [place], [place] | | | | | [place] [address] | [address] | | | | | [phone] | | | +--------+ + + + [...]
--- OUTSIDE RECORDS SUMMARY | ~2019-03-16 | XMS | Clinical Summary ---
Demographics + + + | Address | [address] | | | [place] [address] | + + + | Home Phone | | + + + | Preferred Language | Unknown | + + + | Marital Status | Unknown | + + + | Baptism Affiliation | Unknown | + + + | Race | Unknown | + + + | Ethnic Group | Unknown | + + + Author + + + | Author | [facility] (Historical as of | | | 11-28-18) | + + + | Organization | [facility] (Historical as of | | | 11-28-18) | + + + | Address | Unknown | + + + | Phone | Unavailable | + + + Support + + +---------+ + | Name | Relationship | Address | Phone | + + +---------+ + | Contact,No | ECON | Unknown | | + + +---------+ + Care Team Providers + +------+ + | Care Secure Software Assessor Name | Role | Phone | + +------+ + PP | Unavailable | + +------+ + Allergies Not on File Current Medications Not on file Active Problems Not on file Social History + +-------+ +--------+------+ | Tobacco Use | Types | Packs/Day | Years | Date | | | | | Used | | + +-------+ +--------+------+ | Never Assessed | | | | | + +-------+ +--------+------+ + + + | Sex Assigned at | Date Recorded | | | | + + + | Not on file | | + + + Plan of Treatment + + + + + | Health Maintenance | Due Date | Last Done | Comments | + + + + + | Vaccine: | | | | | Dtap/Tdap/Td (1 - | 6 | | | | Tdap) | | | | + + + + + | Vaccine: Zoster (1 | | | | | of 2) | 7 | | | + + + + + | Vaccine: Influenza | | | | | (#1) | 9 | | | + + + + + Results Not on filefrom Last 3 Months Insurance + +--------+ +------+-------+ + | Payer | Benefi | Subscriber | Type | Phone | Address | | | t Plan | ID | | | | | | / | | | | | | | Group | | | | | + +--------+ +------+-------+ + | MEDICARE | MEDICA | [id number] | | | [address] | | | RE | | | | [place] [address] | | | IP-OP | | | | | + +--------+ +------+-------+ + + +--------+ +--------+ + + | Guarantor Name | Accoun | Relation to | Date | Phone | Billing Address | | | t Type | Patient | of | | | | | | | | | | + +--------+ +--------+ + + | AVELINA TIPTON | Person | Self | [birth year] | Home: | [address] | | | al/Fam | | 1966 | [phone] [place] [address] | | | [place] | | | [phone] | | + +--------+ +--------+ + +"
--- OUTSIDE RECORDS SUMMARY | ~2019-03-16 | XMS | Encounter Summary ---
Demographics + + + | Address | [address] | | | [place] [address] | + + + | Home Phone | | + + + | Preferred Language | Unknown | + + + | Marital Status | | + + + | Evangelical Affiliation | Unknown | + + + | Race | Unknown | + + + | Ethnic Group | Unknown | + + + Author + + + | Author | [facility] | | | and [place] | + + + | Organization | [facility] | | [...] [place] | | | | | [address] | | + + + + + | Arabella Zabala | ECON | Unknown | | + + + + + | No Contact | ECON | Unknown | | + + + + + Care Team Providers + +------+ + | Care Cashier Receptionist Name | Role | Phone | + +------+ + | Ephraim Altamirano MD | PCP | | + +------+ + Encounter Details +--------+ + + + + | Date | Type | Department | Care Team | Description | +--------+ + + + + | 07/23/ | Orders Only | [facility] | Oscar Garcia, | Neck pain (Primary | | 2016 | | NEUROSURGERY [address] | DO [address] | Dx) | | | | [address] [facility] [address] | [address] [place], [place] | | | | | [place], [place] | [address] | | | | | [address] | | | | | | [phone] | | | +--------+ + + + [...] on filedocumented as of this encounter Results XR Cervical Spine 4 [...] | Procedure Note | + + | Erasmo Granado Results In - 08/29/2015 3:05 PM PDT [...] + + | [address] | [address] | [place] | [phone] | | [facility] | | [address] | | | - IMAGING | | | | + + + + + documented in this encounter Visit Diagnoses + + | Diagnosis | + + | Neck pain - Primary Cervicalgia | + + documented in this encounter"
--- OUTSIDE RECORDS SUMMARY | ~2019-03-16 | XMS | Encounter Summary ---
Demographics + + + | Address | [address] | | | [place] [address] | + + + | Home Phone | | + + + | Preferred Language | Unknown | + + + | Marital Status | | + + + | Religion Affiliation | Unknown | + + + | Race | Unknown | + + + | Ethnic Group | Unknown | + + + Author + + + | Author | [facility] | | | and [place] | + + + | Organization | [facility] | | | [...] [place] | | | | | [address] | | + + + + + | Arabella Zabala | ECON | Unknown | | + + + + + | No Contact | ECON | Unknown | | + + + + + Care Team Providers + +------+ + | Care Reference Library Assistant Name | Role | Phone | + +------+ + | Ephraim Altamirano MD | PCP | | + +------+ + Reason for Visit Service/Procedure (Routine) +--------+--------+ + + + + | Status | Reason | Specialty | Diagnoses / | Referred By | Referred To | | | | | Procedures | Contact | Contact | +--------+--------+ + + + + | Closed | | Sleep | Diagnoses | Evelia, | [facility] | | | | Medicine | Epilepsy, | Ephraim Bright, | Center [address] | | | | | unspecified, | MD [address] | [place] | | | | | not | [address] | [place], | | | | | intractable, | [place], | [place] [address] | | | | | without | [place] [address] | Phone: | | | | | status | Phone: | [phone] | | | | | epilepticus | [phone] | Fax: | | | | | (HCC) | Fax: | [phone] | | | | | Procedures | [phone] | | | | | | EEG OK | | | | | | | EEG,W/AWAKE | | | | | | | & DROWSY | | | | | | | RECORD | | | +--------+--------+ + + + + Encounter Details +--------+ + + + + | Date | Type | Department | Care Team | Description | +--------+ + + + + | 10/04/ | Hospital | [facility] | Ephraim Altamirano | Seizures (HCC) | | 2017 - | Encounter | MED CTR SLEEP | MD [address] | | | | | CENTER [address] | [address] | | | 10/05/ | | [place] | [place] [address] | | | 2017 | | [address] | [phone] | | | | | [phone] | | | +--------+ + + + [...] | + +--------+ + + + | EEG | Routin | 10/05/2016 | Seizures (HCC) | Results for this | | | e | 9:02 PM | | procedure are in the | | | | PDT | | results section. | + +--------+ + + + documented in this encounter Results EEG (10/05/2016 9:02 PM [...] Diagnosis | + + | Seizures (HCC) Other convulsions | + + documented in this encounter"
--- OUTSIDE RECORDS SUMMARY | ~2019-03-16 | XMS | Encounter Summary ---
Demographics + + + | Address | [address] | | | [place] [address] | + + + | Home Phone | | + + + | Preferred Language | Unknown | + + + | Marital Status | | + + + | Sabianism Affiliation | Unknown | + + + | Race | Unknown | + + + | Ethnic Group | Unknown | + + + Author + + + | Author | [facility] | | | and [place] | + + + | Organization | [facility] | | | and [place] | + + + | Address | Unknown | + + + | Phone | Unavailable | + + + Support + + + + + | Name | Relationship | Address | Phone | + + + + + | Alesha Ly | ECON | [address] | | | | | [place], [place] | | | | | [address] | | + + + + + | Arabella Zabala | ECON | Unknown | | + + + + + | No Contact | ECON | Unknown | | + + + + + Care Team Providers + +------+ + | Care Inner Tube Tuber Machine Operator Name | Role | Phone | + +------+ + PCP | Unavailable | + +------+ + Encounter Details +--------+ + + + + | Date | Type | Department | Care Team | Description | +--------+ + + + + | 02/12/ | Hospital | [facility] | | | | 2001 | Encounter | MED CTR GENERIC OP | | | | | | CONV DEPT [address] | | | | | | [place], | | | | | | [place] [address] | | | | | | [phone] | | | +--------+ + + + [...]
--- OUTSIDE RECORDS SUMMARY | ~2019-03-16 | XMS | Clinical Summary ---
Demographics + + + | Address | [address] | | | [place] [address] | + + + | Home Phone | | + + + | Preferred Language | Unknown | + + + | Marital Status | | + + + | Muslim Affiliation | Unknown | + + + [...] [place] | | | | | [address] | | + + + + + | Arabella Zabala | ECON | Unknown | | + + + + + | No Contact | ECON | Unknown | | + + + + + Care Team Providers + +------+ + | Care Silica Spray Mixer Name | Role | Phone | + +------+ + | Ephraim Altamirano MD | PCP | | + +------+ + Allergies + + + + + + | Active Allergy | Reactions | Severity | Noted | Comments | | | | | Date | | + + + + + + | Penicillins | | | 06/22/19 | | | | | | 16 | | + + + + + + Medications + + + +---------+------+------+-------+ | Medication | Sig | Dispensed | Refills | Star | End | Statu | | | | | | t | Date | s | | | | | | Date | | | + + + +---------+------+------+-------+ | atorvaSTATin | Take 20 mg by mouth | | 0 | | | Activ | | (LIPITOR) 20 mg | nightly. | | | | | e | | tablet | | | | | | | + + + +---------+------+------+-------+ | carBAMazepine | Take 200 mg by mouth | | 0 | | | Activ | | (TEGRETOL) 200 mg | 3 times daily. | | | | | e | | tablet | | | | | | | + + + +---------+------+------+-------+ | divalproex | Take 500 mg by mouth | | 0 | | | Activ | | (DEPAKOTE) 500 mg EC | 2 times daily. | | | | | e | | tablet | | | | | | | + + + +---------+------+------+-------+ | levothyroxine | Take 75 mcg by mouth | | 0 | | | Activ | | (SYNTHROID, | every morning | | | | | e | | LEVOTHROID) 75 MCG | (before breakfast). | | | | | | | tablet | | | | | | | + + + +---------+------+------+-------+ | gabapentin | Take 300 mg by mouth | | 0 | | | Activ | | (NEURONTIN) 300 mg | Daily. | | | | | e | | capsule | | | | | | | + + + +---------+------+------+-------+ Active Problems No known active problems Family History + + +------+ + | Medical History | Relation | Name | Comments | + + +------+ + | Heart attack | Father | | | + + +------+ + | Heart disease | Father | | ASCVD | + + +------+ + | Heart surgery | Father | | | + + +------+ + | Cancer | Maternal | | | | | Grandfath | | | | | er | | | + + +------+ + | Heart disease | Maternal | | | | | Grandfath | | | | | er | | | + + +------+ + | Heart disease | Maternal | | | | | Grandmoth | | | | | er | | | + + +------+ + | High cholesterol | Mother | | | + + +------+ + | Hypertension | Mother | | | + + +------+ + | Low back pain | Mother | | | + + +------+ + | Other (see comment) | Mother | | OSTEOPENIA | + + +------+ + | Alcohol abuse | Other | | UNKNOWN RELATION | + + +------+ + | Fibromyalgia | Other | | UNKNOWN RELATION | + + +------+ + | Other (see comment) | Other | | BLOOD CLOTS | + + +------+ + | Rheumatologic | Other | | UNKNOWN RELATION | | disease | | | | + + +------+ + | Stroke | Paternal | | | | | Grandfath | | | | | er | | | + + +------+ + | Arthritis | Sister | | | + + +------+ + | Diabetes | Sister | | | + + +------+ + + +------+ + + | Relation | Name | Status | Comments | + +------+ + + | Brother | | Alive | | + +------+ + + | Father | | | HEART | | | | (Age | | | | | 80) | | + +------+ + + | Maternal Grandfather | | | | | | | (Age | | | | | 85) | | + +------+ + + | Maternal Grandmother | | | | | | | (Age | | | | | 84) | | + +------+ + + | Mother | | Alive | | + +------+ + + | Other | | | | + +------+ + + | Paternal Grandfather | | | | + +------+ + + | Paternal Grandmother | | | | + +------+ + + | Sister | | Alive | | + +------+ + + | Sister | | | | + +------+ + + Social History + +-------+ +--------+------+ [...] recent travel history available. | + + Last Filed Vital Signs + + + [...] | | + + + + + Plan of Treatment + [...] filefrom Last 3 Months Insurance + +--------+ +--------+ +---------+--------+ | Payer | Benefi | Subscriber | Effect | Phone | Address | Type | | | t Plan | ID | ann | | | | | | / | | Dates | | | | | | Group | | | | | | + +--------+ +--------+ +---------+--------+ | MEDICARE | MEDICA | [id number] | 10/12/18 | [phone] | | Medica | | | RE | | 88-Pre | 5 | | re | | | PART A | | sent | | | | | | AND B | | | | | | + +--------+ +--------+ +---------+--------+ + +--------+ +--------+ + + | Guarantor Name | Accoun | Relation to | Date | Phone | Billing Address | | | t Type | Patient | of | | | | | | | | | | + +--------+ +--------+ + + | Mata Tipton | Person | Self | [birth year] | [address] | | | al/Fam | | 1966 | [phone] | [place] [address] | | | [place] | | | 0 (Home) | | + +--------+ +--------+ + + Advance Directives + + + + + | Type | Date Recorded | Patient | Explanation | | | | Payroll Benefits Clerk | | + + + + + | Power of | | | | | Rn Cardiovascular | | | | + + + + + | Advance | 10/04/2016 9:11 | | | | Directive | AM | | | + + + + +
--- OUTSIDE RECORDS SUMMARY | ~2019-03-16 | XMS | Encounter Summary ---
Demographics + + + | Address | [address] | | | [place] [address] | + + + | Home Phone | | + + + | Preferred Language | Unknown | + + + | Marital Status | | + + + | Gnosticist Affiliation | Unknown | + + + | Race | Unknown | + + + | Ethnic Group | Unknown | + + + Author + + + | Author | [facility] | | | and [place] | + + + | Organization | [facility] | | | [...] [place] | | | | | [address] | | + + + + + | Arabella Zabala | ECON | Unknown | | + + + + + | No Contact | ECON | Unknown | | + + + + + Care Team Providers + +------+ + | Care Electric Organ Checker Name | Role | Phone | + [...] + + | 08/29/ | Telephone | [facility] | Matty Hu, | Imaging Only | | 2015 | | NEUROSURGERY [address] | PA-C [address] | | | | | [address] | [address] [facility] | | | | | [place], [place] | [place] [address] | | | | | [address] | [phone] | | | | | [phone] | | | +--------+ + + + [...]
--- OUTSIDE RECORDS SUMMARY | ~2019-03-16 | XMS | Clinical Summary ---
Demographics + + + | Address | [address] | | | [place] [address] | + + + | Home Phone | | + + + | Preferred Language | Unknown | + + + | Marital Status | | + + + | Latter Day Affiliation | Unknown | + + + | Race | Unknown | + + + | Ethnic Group | Unknown | + + + Author + + + | Author | [facility] | | | and [place] | + + + | Organization | [facility] | | | and [...] [place] | | | | | [address] | | + + + + + | Arabella Zabala | ECON | Unknown | | + + + + + | No Contact | ECON | Unknown | | + + + + + Care Team Providers + +------+ + | Care Spud Driller Name | Role | Phone | + [...] +--------+ +---------+--------+ | MEDICARE | MEDICA | [id number] | 10/12/18 | [phone] | | Medica [...] | 1966 | [phone] | [place] [address] | | | [place] | | | 0 (Home) | | + +--------+ +--------+ + + Advance Directives + + + + + | Type | Date Recorded | Patient | Explanation | | | | Academic Affairs Assistant | | + + + + + | Power of | | | | | Asbestos Cloth Inspector | | | | + + + + + | Advance | 10/04/2016 9:11 | | | | Directive | AM | | | + + + + +
--- OUTSIDE RECORDS SUMMARY | ~2019-03-16 | XMS | Encounter Summary ---
Demographics + + + | Address | [address] | | | [place] [address] | + + + | Home Phone [...] + + | Author | [facility] | | | and [place] | + + + | Organization | [facility] | | [...] [place] | | | | | [address] | | + + + + + | Arabella Zabala | ECON | Unknown | | + + + + + | No Contact | ECON | Unknown | | + + + + + Care Team Providers + +------+ + | Care Sheep Herder Name | Role | Phone | + +------+ + | Ephraim Altamirano MD | PCP | | + +------+ + Encounter Details +--------+ + + + + | Date | Type | Department | Care Team | Description | +--------+ + + + + | 08/28/ | Hospital | [facility] | Matty Hu, | Mechanical low back | | 2016 | Encounter | MED CTR XRAY [address] | PA-C [address] | pain | | | | [place] | [address] [place] | | | | | [place] [address] | [place] [address] | | | | | [phone] | [phone] | | | | | | | | +--------+ + + + [...] + +--------+ + + + | XR LUMBAR SPINE 4 + | Routin | 08/29/2015 | Mechanical low | Results for this | | VW | e | 1:02 PM | back pain | procedure are in the | | | | PDT | | results section. | + +--------+ + + + documented in this encounter Results XR Lumbar Spine 4 + Vw (08/29/2015 1:02 PM PDT) + + | Specimen | + + | | + + + + + | Narrative | Performed At | + + + | LUMBAR SPINE: 08/29/2015 1:02 PM CLINICAL HISTORY: Back pain | [facility] | | COMPARISON: None FINDINGS: Upright AP, lateral and lateral | . ADAN | | flexion-extension views of the lumbar [...] | + + + + + | [address] | [address] | [place] | [phone] | | [facility] | | [address] | | | - IMAGING | | | | + + + + + documented in this encounter Visit Diagnoses + + | Diagnosis | + + | Mechanical low back pain Lumbago | + + documented in this encounter"
--- OUTSIDE RECORDS SUMMARY | ~2019-03-16 | XMS | Encounter Summary ---
Demographics + + + | Address | [address] | | | [place] [address] | + + + | Home Phone | | + + + | Preferred Language | Unknown | + + + | Marital Status | | + + + | Sabianist Affiliation | Unknown | + + + | Race | Unknown | + + + | Ethnic Group | Unknown | + + + Author + + + | Author | [facility] | | | and [place] | + + + | Organization | [facility] | | | [...] [place] | | | | | [address] | | + + + + + | Arabella Zabala | ECON | Unknown | | + + + + + | No Contact | ECON | Unknown | | + + + + + Care Team Providers + +------+ + | Care Athlete Manager Name | Role | Phone | + [...] | Specialty | Physical | Diagnoses | Matye, | Teodoro Pressley | | | Services | Medicine and | Mechanical | Matty Pagan, | Latasha Poon MD [address] | | | Required | Rehabilitatio | low back | PA-C [address] | | | | n | pain | [address] | [place], | | | | | | [address] | [place] [address] | | | | | | [place], | Phone: | | | | | | [place] [address] | [phone] | | | | | | Phone: | Fax: | | | | | | [phone] | [phone] | | | | | | Fax: | | | | | | | [phone] | | +--------+ + + + + [...] | | | unspecified | [place], | [place], [place] | | | | | Procedures | [place] [address] | [address] Phone: | | | | | [place] OFFICE | Phone: | [phone] | | | | | CONSULTATION | [phone] | Fax: | | | | | NEW/ESTAB | Fax: | [phone] | | | | | PATIENT 60 | [phone] | | | | | | MIN | | | +--------+--------+ + + + + Encounter Details +--------+---------+ + + + | Date | Type | Department | Care Team | Description | +--------+---------+ + + + | 08/28/ | Office | [facility] [place] | Matty Hu, | Cervicalgia (Primary | | 2016 | Visit | NEUROSURGERY [address] | PA-C [address] | Dx); 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 CRANIAL NERVES: II: Acuity is intact. 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 | [address] | [place] | [phone] | | [facility] | | [address] | | | - IMAGING | | [...]
--- OUTSIDE RECORDS SUMMARY | ~2019-03-16 | XMS | Encounter Summary ---
Demographics + + + | Address | [address] | | | [place] [address] | + + + | Home Phone | | + + + | Preferred Language | Unknown | + + + | Marital Status | | + + + | Scientologist Affiliation | Unknown | + + + | Race | Unknown | + + + | Ethnic Group | Unknown | + + + Author + + + | Author | [facility] | | | and [place] | + + + | Organization | [facility] | | [...] [place] | | | | | [address] | | + + + + + | Arabella Zabala | ECON | Unknown | | + + + + + | No Contact | ECON | Unknown | | + + + + + Care Team Providers + +------+ + | Care Warp Starter Name | Role | Phone | + +------+ + | Ephraim Altamirano MD | PCP | | + +------+ + Encounter Details +--------+ + + + + | Date | Type | Department | Care Team | Description | +--------+ + + + + | 08/28/ | Hospital | [facility] | Matty Hu, | Mechanical low back | | 2016 | Encounter | MED CTR XRAY [address] | PA-C [address] | pain | | | | [place] | [address] [place] | | | | | [place] [address] | [place] [address] | | | | | [phone] | [phone] | | | | | | | [...] | + + + + + | [address] | [address] | [place] | [phone] | | [facility] | | [address] | | | - IMAGING | | | | + + + + + documented in this encounter Visit Diagnoses + + | Diagnosis | + + | Mechanical low back pain Lumbago | + + documented in this encounter"
--- OUTSIDE RECORDS SUMMARY | ~2019-03-16 | XMS | Encounter Summary ---
Demographics + + + | Address | [address] | | | [place] [address] | + + + | Home Phone | | + + + | Preferred Language | Unknown | + + + | Marital Status | | + + + | Temple Affiliation | Unknown | + + + | Race | Unknown | + + + | Ethnic Group | Unknown | + + + Author + + + | Author | [facility] | | | and [place] | + + + | Organization | [facility] | | | [...] [place] | | | | | [address] | | + + + + + | Arabella Zabala | ECON | Unknown | | + + + + + | No Contact | ECON | Unknown | | + + + + + Care Team Providers + +------+ + | Care Sales Agent Casualty Insurance Name | Role | Phone | + +------+ + | Ephraim Altamirano MD | PCP | | + +------+ + Encounter Details +--------+ + + + + | Date | Type | Department | Care Team | Description | +--------+ + + + + | 07/23/ | Orders Only | [facility] | Oscar Garcia, | Neck pain (Primary | | 2016 | | NEUROSURGERY [address] | DO [address] | Dx) | | | | [address] [facility] [address] | [address] [place], [place] | | | | | [place], [place] | [address] | | | | | [address] | | | | | | [phone] | | | +--------+ + + + [...] [address] | [place] | [phone] | | [facility] | | [address] | | | - IMAGING | | | | + + + + + documented in this encounter Visit Diagnoses + + | Diagnosis | + + | Neck pain - Primary Cervicalgia | + + documented in this encounter"
--- OUTSIDE RECORDS SUMMARY | ~2019-03-16 | XMS | Encounter Summary ---
Demographics + + + | Address | [address] | | | [place] [address] | + + + | Home Phone | | + + + | Preferred Language | Unknown | + + + | Marital Status | | + + + | Anabaptist Affiliation | Unknown | + + + | Race | Unknown | + + + | Ethnic Group | Unknown | + + + Author + + + | Author | [facility] | | | and [place]ren[place] | + + + | Organization | [facility] | | | [...] [place] | | | | | [address] | | + + + + + | Arabella Zabala | ECON | Unknown | | + + + + + | No Contact | ECON | Unknown | | + + + + + Care Team Providers + +------+ + | Care Ground Hand Name | Role | Phone | + [...] | | | | pain without | [address] | | | | | | sciatica | [place], | | | | | | [place] | [place] [address] | | | | | | strain, | Phone: | | | | | | initial | [phone] | | | | | | encounter | Fax: | | | | | | | [phone] | | +--------+ + + + + [...] Left upper | [address] | | | | n | extremity | [address] | [place], | | | | | numbness | [place], | [place] [address] | | | | | Weakness of | [place] [address] | Phone: | | | | | left upper | Phone: | [phone] | | | | | extremity | [phone] | Fax: | | | | | Osteoarthrit | Fax: | [phone] | | | | | is of spine | [phone] | | | | | | with [...] PHYSIATRY [address] | MD [address] | Dx); Left upper | | | | [place], | [place], [place] | extremity numbness; | | | | [place] [address] | [address] | Weakness of left | | | | [phone] | | upper extremity; | | | [...] might be different fro m the original. [facility] Physical Medicine & Rehabilitation [address] [place] [address], [address] [place] [address] Test Date: 07/25/2015 Patient Name: Mata Tipton : 1965 Physician: Teodoro Pressley MD (Jr.) MR #: [id number] Sex: Male Referring Physician: Ephraim Altamirano MD [...] to reduce if he slouches and keeps mn s neck in a flexed position. He [...] requesting a pain pill or something for mn s back. Prior episodes of back pain [...] to either ankle. Strength is 4/5 hand search engine optimization manager on the left compared to 5/5 on [...]
--- OUTSIDE RECORDS SUMMARY | ~2019-03-16 | XMS | Encounter Summary ---
Demographics + + + | Address | [address] | | | [place] [address] | + + + | Home Phone | | + + + | Preferred Language | Unknown | + + + | Marital Status | | + + + | Orthodoxy Affiliation | Unknown | + + + | Race | Unknown | + + + | Ethnic Group | Unknown | + + + Author + + + | Author | [facility] | | | and [place]ren[place] | + + + | Organization | [facility] | | | [...] [place] | | | | | [address] | | + + + + + | Arabella Zabala | ECON | Unknown | | + + + + + | No Contact | ECON | Unknown | | + + + + + Care Team Providers + +------+ + | Care Back Joiner Name | Role | Phone | + [...] | unspecified, | MD [address] | [place] | | | | | not | [address] | [place], | | | | | intractable, | [place], | [place] [address] | | | | | without | [place] [address] | Phone: | | | | | status | Phone: | [phone] | | | | | epilepticus | [phone] | Fax: | | | | | (HCC) | Fax: | [phone] | | | | | Procedures | [phone] | | | | | | EEG NE | | | | | | | EEG,W/AWAKE | | | | | | | & DROWSY | | | | | | | RECORD | | | +--------+--------+ + + + + Encounter Details +--------+ + + + + | Date | Type | Department | Care Team | Description | +--------+ + + + + | 10/04/ | Hospital | [facility] | Ephraim Altamirano | Seizures (HCC) | | 2017 - | Encounter | MED CTR SLEEP | MD [address] | | | | | CENTER [address] | [place] | | | 10/05/ | | [place] | [place] [address] | | | 2017 | | [address] | [phone] | | | | | [phone] | | | +--------+ + + + [...]
--- OUTSIDE RECORDS SUMMARY | ~2019-03-16 | XMS | Encounter Summary ---
Demographics + + + | Address | [address] | | | [place] [address] | + + + | Home Phone | | + + + | Preferred Language | Unknown | + + + | Marital Status | | + + + | Religion Affiliation | Unknown | + + + | Race | Unknown | + + + | Ethnic Group | Unknown | + + + Author + + + | Author | [facility] | | | and [place]ren[place] | + + + | Organization | [facility] | | | and [...] [place], [place] | | | | | [address] | | + + + + + | Arabella Zabala | ECON | Unknown | | + + + + + | No Contact | ECON | Unknown | | + + + + + Care Team Providers + +------+ + | Care Senior Construction Estimator Name | Role | Phone | + +------+ + PCP | Unavailable | + +------+ + Encounter Details +--------+ + + + + | Date | Type | Department | Care Team | Description | +--------+ + + + + | 02/12/ | Hospital | [facility] | | | | 2001 | Encounter | MED CTR GENERIC OP | | | | | | CONV DEPT [address] | | | | | | [place], | | | | | | [place] [address] | | | | | | [phone] | | | +--------+ + + + [...]
--- OUTSIDE RECORDS SUMMARY | ~2019-03-16 | XMS | Clinical Summary ---
Demographics + + + | Address | [address] | | | [place] [address] | + + + | Home Phone | | + + + | Preferred Language | Unknown | + + + | Marital Status | Unknown | + + + | Orthodox Affiliation | Unknown | + + + | Race | Unknown | + + + | Ethnic Group | Unknown | + + + Author + + + | Author | [email or web address] (Historical as of | | | 11-28-18) | + + + | Organization | [email or web address] (Historical as of | | | 11-28-18) [...] Team Providers + +------+ + | Care Banking Paralegal Name | Role | Phone | + [...] +------+-------+ + | MEDICARE | MEDICA | [id number] | | | [address] | | | [place] | | | | [place] [address] | | | IP-OP | | | [...] | | al/Fam | | 1966 | [phone] | [place] [address] | | | [place] | | | [address] | | + +--------+ +--------+ + +"
--- OUTSIDE RECORDS SUMMARY | ~2019-03-16 | XMS | Encounter Summary ---
Demographics + + + | Address | [address] | | | [place] [address] | + + + | Home Phone | | + + + | Preferred Language | Unknown | + + + | Marital Status | | + + + | Roman Catholic Affiliation | Unknown | + + + | Race | Unknown | + + + | Ethnic Group | Unknown | + + + Author + + + | Author | [facility] | | | and [place] | + + + | Organization | [facility] | | [...] [place] | | | | | [address] | | + + + + + | Arabella Zabala | ECON | Unknown | | + + + + + | No Contact | ECON | Unknown | | + + + + + Care Team Providers + +------+ + | Care Tank Hoop Bender Name | Role | Phone | + [...] PHYSIATRY [address] | MD [address] | | | | | [place], | [place], [place] | | | | | [place] [address] | [address] | | | | | [phone] | | | +--------+ + + + [...]
--- OUTSIDE RECORDS SUMMARY | ~2019-03-16 | XMS | Encounter Summary ---
Demographics + + + | Address | [address] | | | [place] [address] | + + + | Home Phone | | + + + | Preferred Language | Unknown | + + + | Marital Status | | + + + | Adventist Affiliation | Unknown | + + + [...] [place], [place] | | | | | [address] | | + + + + + | Arabella Zabala | ECON | Unknown | | + + + + + | No Contact | ECON | Unknown | | + + + + + Care Team Providers + +------+ + | Care Director Sales Training Name | Role | Phone | + +------+ + PCP | Unavailable | + +------+ + Encounter Details +--------+ + + + + | Date | Type | Department | Care Team | Description | +--------+ + + + + | 02/25/ | Hospital | [facility] | | | | 2001 | Encounter | MED CTR XRAY [address] | | | | | | [place] | | | | | | [place] [address] | | | | | | [phone] | | | +--------+ + + + [...]
--- OUTSIDE RECORDS SUMMARY | ~2019-03-16 | XMS | Encounter Summary ---
Demographics + + + | Address | [address] | | | [place] [address] | + + + | Home Phone | | + + + | Preferred Language | Unknown | + + + | Marital Status | | + + + | Sabianism Affiliation | Unknown | + + + | Race | Unknown | + + + | Ethnic Group | Unknown | + + + Author + + + | Author | [facility] | | | and [place] | + + + | Organization | [facility] | | | [...] [place], [place] | | | | | [address] | | + + + + + | Arabella Zabala | ECON | Unknown | | + + + + + | No Contact | ECON | Unknown | | + + + + + Care Team Providers + +------+ + | Care University Manager Name | Role | Phone | + +------+ + PCP | Unavailable | + +------+ + Encounter Details +--------+ + + + + | Date | Type | Department | Care Team | Description | +--------+ + + + + | 02/25/ | Hospital | [facility] | | | | 2001 | Encounter | MED CTR XRAY [address] | | | | | | [place] | | | | | | [place] [address] | | | | | | [phone] | | | +--------+ + + + [...]
[~2019-03-16 23:50] MED LIST changes: +CLEOCIN HCL300 MG PO; +PRILOSEC OTC20 MG PO
--- NOTE | 2019-03-17 17:50 | EKG ---
[facility] [address] [place], [place] [address] Signed Normal sinus rhythm with sinus arrhythmia Normal ECG No previous ECGs available Confirmed by LACEY MCGINNIS DO ([id number]) on 03/17/2019 5:50:13 PM Electronically Signed By: LACEY MCGINNIS DO 03/17/19 1750 PATIENT NAME: AVELINA SIEGEL Electrocardiogram DATE OF : 67 PHYSICIAN: LACEY MCGINNIS DO REPORT #: [id number] REPORT IS CONFIDENTIAL AND NOT TO BE RELEASED WITHOUT AUTHORIZATION
== END 2019-03-17 01:52 | disposition home or self-care (01) ==
LOC: ED 23:50
DX: R55 Syncope and collapse (principal); G43.909 Migraine, unspecified, not intractable, without status migrainosus; S92.421A Displaced fracture of distal phalanx of right great toe, initial encounter for closed fracture; E03.9 Hypothyroidism, unspecified; Z88.0 Allergy status to penicillin; Z88.5 Allergy status to narcotic agent; Z88.7 Allergy status to serum and vaccine; Z79.899 Other long term (current) drug therapy; W18.30XA Fall on same level, unspecified, initial encounter
CPT/HCPCS: 73660; 80053; 83735; 84484; 85025; 93005; 93010; 99284-25